=== PATIENT | female | born 1930 | race Caucasian/White ===

== ENCOUNTER 2019-07-20 17:01 | Emergency (ER) | payer MEDICARE ==
[~2019-07-20] VITALS: Wt 54.4 kg
[2019-07-20 18:47] LABS: BASO % 0.3 % (0.0-1.0); EOS % 0.3 % (1.0-4.0); HEMATOCRIT 40.2 % (37.0-47.0); HEMOGLOBIN 12.5 g/dl (12.0-16.0); LYMPH # 1.6 10*3/uL (1.3-4.4); MEAN CELL VOLUME 100.5 fl (81.0-99.0); MEAN CORPUSCULAR HGB 31.3 pg (27.0-31.0); MEAN CORPUSCULAR HGB CONC 31.1 g/dl (33.0-37.0); MEAN PLATELET VOLUME 10.7 fl (9.6-12.3); MONO # 0.5 10*3/uL (0.1-1.0); MONO % 7.8 % (3.0-9.0); NEUT # 3.8 10*3/uL (2.3-7.9); NEUT % 64.4 % (47.0-73.0); PLATELET COUNT AUTOMATED 182 10*3/uL (130-400); RED CELL DISTRI WIDTH 13.2 % (0-14.5); WHITE BLOOD COUNT 5.9 10*3/uL (4.8-10.8)
[2019-07-20 18:54] LABS: URINE AMPHETAMINES < 1000 (1000ng/ml); URINE BARBITURATES < 200 (200ng/ml); URINE BENZODIAZEPINES < 200 (200ng/ml); URINE CANNABINOIDS (THC) < 50 (50ng/ml); URINE COCAINE < 300 (300ng/ml); URINE METHADONE < 300 (300ng/ml); URINE OPIATES < 300 (300ng/ml)
[2019-07-20 18:57] LABS: URINE PHENCYCLIDINE < 25 (25ng/ml)
[2019-07-20 19:00] LABS: ACT PARTIAL THROMBO TIME 25.1 SECONDS (20.0-32.1); INTERNATIONAL NORM RATIO 1.1 (2.0-3.5)
[2019-07-20 19:02] LABS: BILIRUBIN NEGATIVE (NEGATIVE); BLOOD 3+ (NEGATIVE); CLARITY CLOUDY (CLEAR); COLOR BROWN (YELLOW); GLUCOSE NEGATIVE (NEGATIVE); KETONE NEGATIVE (NEGATIVE); SPECIFIC GRAVITY 1.025 (1.005-1.030)
[2019-07-20 19:03] LABS: ALBUMIN 2.8 gm/dl (3.1-4.5); ALKALINE PHOSPHATASE 84 U/L (45-117); BUN 24 mg/dl (7-24); CHLORIDE 109 mmol/L (98-107); CREATININE 1.49 mg/dL (0.55-1.02); LIPASE 251 U/L (73-393); SGOT/AST 15 IU/L (3-35); SGPT/ALT 15 U/L (12-78); SODIUM 144 mmol/L (136-145); TOTAL PROTEIN 6.7 gm/dL (6.4-8.2)
[2019-07-20 19:03] LABS: LEUKO ESTERASE TRACE (NEGATIVE); NITRITE NEGATIVE (NEGATIVE); RBC TNTC rbc/hpf (0-2); UROBILINOGEN 0.2 E.U./dl (0.2-1.0)
[2019-07-20 19:09] LABS: ACETAMINOPHEN (TYLENOL) < 5.0 ug/ml (10-30); ETHYL ALCOHOL < 3.0 mg/dl (<3); TROPONIN I < 0.015 ng/ml (<0.045)
[2019-07-20] MEDS ORDERED: ATORVASTATIN CA10 M1 PO (21:21)
[2019-07-20] MEDS ORDERED: KLONOPIN0.5 MG PO (21:22)
[2019-07-20] MEDS ORDERED: DEPAKOTE SPRIN125 MG PO (21:23)
[2019-07-20] MEDS ORDERED: EXELON13.3 MG/21 TD (21:24)
[2019-07-20] MEDS ORDERED: LOSARTAN POTASS25 M1 PO (21:25)
[2019-07-20] MEDS ORDERED: LASIX20 MG PO (21:25)
[2019-07-20] MEDS ORDERED: Meclizine25 MG PO (21:26)
[2019-07-20] MEDS ORDERED: MELATONIN3 M3 PO (21:28)
[2019-07-20] MEDS ORDERED: ONE DAILY PLUS1 EAC1 PO (21:28)
[2019-07-20] MEDS ORDERED: NAMENDA10 MG PO (21:29)
[2019-07-20] MEDS ORDERED: PLAVIX75 M1 PO (21:31)
[2019-07-20] MEDS ORDERED: SENNA PLUS 8.61 EACH PO (21:32)
[2019-07-20] MEDS ORDERED: POTASSIUM CHLO10 ME4 PO (21:32)
[2019-07-20] MEDS ORDERED: B COMPLEX1 EACH PO (21:33)
[2019-07-20] MEDS ORDERED: XARE15TA PO (21:34)
[2019-07-20] MEDS ORDERED: ZOFRAN4 MG PO (21:34)
== END 2019-07-20 21:06 | disposition other institution (70) ==
LOC: ED 17:01
PROVIDERS: Nurse Practitioner Family
DX: F32.9 Major depressive disorder, single episode, unspecified (principal); E86.0 Dehydration; R60.0 Localized edema; E78.5 Hyperlipidemia, unspecified; M19.90 Unspecified osteoarthritis, unspecified site; E03.9 Hypothyroidism, unspecified; Z88.8 Allergy status to other drugs, medicaments and biological substances; Z88.6 Allergy status to analgesic agent; Z79.899 Other long term (current) drug therapy; Z86.73 Personal history of transient ischemic attack (TIA), and cerebral infarction without residual deficits

== ENCOUNTER 2019-07-20 19:55 | Inpatient (IN) | payer MEDICARE ==
[~2019-07-20] VITALS: Ht 160 cm; Wt 43.4 kg
[2019-07-20] MEDS ORDERED: ATORVASTATIN CA10 M1 PO (21:21)
[2019-07-20] MEDS ORDERED: KLONOPIN0.5 MG PO (21:22)
[2019-07-20] MEDS ORDERED: DEPAKOTE SPRIN125 MG PO (21:23)
[2019-07-20] MEDS ORDERED: EXELON13.3 MG/21 TD (21:24)
[2019-07-20] MEDS ORDERED: LOSARTAN POTASS25 M1 PO (21:25)
[2019-07-20] MEDS ORDERED: LASIX20 MG PO (21:25)
[2019-07-20] MEDS ORDERED: Meclizine25 MG PO (21:26)
[2019-07-20] MEDS ORDERED: MELATONIN3 M3 PO (21:28)
[2019-07-20] MEDS ORDERED: ONE DAILY PLUS1 EAC1 PO (21:28)
[2019-07-20] MEDS ORDERED: NAMENDA10 MG PO (21:29)
[2019-07-20] MEDS ORDERED: PLAVIX75 M1 PO (21:31)
[2019-07-20] MEDS ORDERED: POTASSIUM CHLO10 ME4 PO (21:32)
[2019-07-20] MEDS ORDERED: SENNA PLUS 8.61 EACH PO (21:32)
[2019-07-20] MEDS ORDERED: B COMPLEX1 EACH PO (21:33)
[2019-07-20] MEDS ORDERED: ZOFRAN4 MG PO (21:34)
[2019-07-20] MEDS ORDERED: XARE15TA PO (21:34)
[2019-07-20 21:43] VITALS: BP 127/64
--- NOTE | 2019-07-20 21:57 | NUR ---
JESSIE CORTEZ a 88 year old F admitted via stretcher from the EMERGENCY ROOM as a voluntary admission PER SJ. Arrived on unit at 2100. ALLERGIES: CIPRO, ALLOPURINOL, CRESTOR, DARVON, VICODIN, IODINE, LISINOPRIL Vital signs are: 98.7-96-18 127/64. VERBAL CONSENT WAS RECEIVED FOR ALL ADMISSION FORMS PRIOR TO ADMISSION FROM [facility] with stated understanding: Authorization For The Release of Medical Information, Clothing List, Consent to Voluntary Admission and Hospitalization, Consent and Release Forms/Receipt of Rights, Acknowledgement of Advance Directive Information, Behavioral Health Consent Form, and Informed Consent of Medications. Admitted under the services of Dr. RENATE BANDA,RILEY. A search was conducted and hazardous articles were removed. Client was oriented to the unit. FABIOLA CLINTON
[2019-07-20 22:53] VITALS: BP 127/64
--- NOTE | 2019-07-20 22:59 | NUR ---
DR LISA NOTIFIED OF MEDICAL CONSULT & MED REQ READY FOR REVIEW
--- NOTE | 2019-07-21 00:45 | NUR ---
DR DONG ON UNIT TO SEE PT FOR MEDICAL CONSULT
--- NOTE | 2019-07-21 05:56 | NUR ---
PT HAS SLEPT APPROX 7 HOURS. SCREAMS & YELLS WITH HANDS ON CARE.
[2019-07-21 06:24] LABS: BASO % 0.2 % (0.0-1.0); EOS % 0.8 % (1.0-4.0); HEMATOCRIT 38.5 % (37.0-47.0); HEMOGLOBIN 11.9 g/dl (12.0-16.0); LYMPH # 1.4 10*3/uL (1.3-4.4); LYMPH % 29.2 % (27.0-41.0); MEAN CELL VOLUME 100.8 fl (81.0-99.0); MEAN CORPUSCULAR HGB 31.2 pg (27.0-31.0); MEAN CORPUSCULAR HGB CONC 30.9 g/dl (33.0-37.0); MEAN PLATELET VOLUME 10.7 fl (9.6-12.3); MONO # 0.4 10*3/uL (0.1-1.0); MONO % 8.5 % (3.0-9.0); NEUT # 2.9 10*3/uL (2.3-7.9); NEUT % 61.1 % (47.0-73.0); PLATELET COUNT AUTOMATED 167 10*3/uL (130-400); RED BLOOD COUNT 3.82 10*6/uL (4.10-5.10); RED CELL DISTRI WIDTH 13.2 % (0-14.5); WHITE BLOOD COUNT 4.7 10*3/uL (4.8-10.8)
[2019-07-21 06:57] LABS: POTASSIUM 3.9 mmol/L (3.5-5.1)
[2019-07-21 07:16] LABS: ALBUMIN 2.7 gm/dl (3.1-4.5); CREATININE 1.27 mg/dL (0.55-1.02); TOTAL PROTEIN 6.1 gm/dL (6.4-8.2)
--- NOTE | 2019-07-21 07:58 | NUR ---
Nursing screen and occupational therapy orders received. Will follow up with patient for completion of OT evaluation. Thank you. Emilee Reveles, OTR/L
[2019-07-21 08:00] VITALS: BP 109/66
--- NOTE | 2019-07-21 08:08 | NUR ---
PHYSICAL THERAPY Screen and PT eval received will follow thank you Radha Mccurdy PT
--- NOTE | 2019-07-21 09:06 | NUR ---
DR MCINTOSH ON UNIT TO ASSESS PT, UPDATE PROVIDED.
--- NOTE | 2019-07-21 10:32 | NUR ---
TREATMENT PLAN MEETING WAS HELD WITH DR. DEWITT, ISRAEL HURTADO, RN, AT, RETREAD TECHNICIAN-S AND MAILROOM COURIER. PLAN FOR DISCHARGE NEXT WEEK. PT. CAME TO [facility] FROM [place]. WILL REACH OUT TO FACILITY TODAY TO DISCUSS DISCHARGE PLANNING.
--- NOTE | 2019-07-21 11:16 | NUR ---
DR. MCINTOSH MADE AWARE OF PRELIMINARY BLOOD CULTURE RESULTS FROM ED. STATES HE IS GOING TO REPEAT BLOOD CULTURES AND ORDER IV ABT.
--- NOTE | 2019-07-21 11:44 | NUR ---
Spoke with Jennifer in admissions at [facility]. Pt. is LTC resident and will return to facility at discharge.
--- NOTE | 2019-07-21 11:55 | NUR ---
AM GROUP PT WAS PRESENT FOR MORNING GROUP THERAPY RECLINED IN A JESSICA CHAIR SLEEPING. PT HAS NOT BEEN ASSESSED YET AND WILL ATTEMPT THIS AFTERNOON. PT IS VERY HARD OF HEARING BUT COGNITIVE LEVEL HAS NOT BEEN ESTABLISHED NOR GOALS SET.
--- NOTE | 2019-07-21 14:45 | NUR ---
Occupational Therapy evaluation completed on three with full evaluation to follow. Recommend occupational therapy per plan of care and return to LTC upon discharge. Thank you for this referral. Emilee Reveles OTR/L
--- NOTE | 2019-07-21 15:52 | NUR ---
PM GROUP PT WAS PRESENT AT THE START OF AFTERNOON GROUP THERAPY AND WAS A LITTLE ANXIOUS SAYING, "HELP ME, HELP ME" BUT ONCE THIS CARBIDE TOOL MAKER SAT WITH HER AND COMMUNICATED WITH THE DRY ERASE BOARD, PT CALMED AND WAS VERY TALKATIVE. PT IS PLEASANTLY CONFUSED.
[2019-07-21 20:00] VITALS: BP 112/70
--- NOTE | 2019-07-21 22:08 | NUR ---
Patient alert to person only with confusion noted. Memory deficits noted. No overt s/s of responding to internal stimuli noted at this time. Patient yelling and cursing out during hands on care. Patient conpliant with HS medications with much encouragement. Patient restless at this time while in gerichair. Attempted to provide 1:1 for emotional support but patient refused and continued to yell. Redirected/reoriented when needed but patient isn't very receptive at times. Plan to continue to encourage medication compliance. Also continue to offer emotional support and continue to redirect/reorient when needed/appropriate. Will continue to monitor moods/behaviors. Q 15 minute safety checks continued and maintained. [facility] flow[facility] for further documentation.
--- NOTE | 2019-07-21 22:32 | NUR ---
Patient continues to yell out and curse. Placed patient in quiet room. Patient continues to be disruptive to other patients. Attempted to provide 1:1,communicating on dry erase board,attempted to redirect/reorient but unsuccessful. All non-pharmacological interventions unsuccessful too. Medicated with Ativan IM prn for increased agitation/anxiety. Will continue to monitor moods/behaviors.
--- NOTE | 2019-07-21 23:15 | NUR ---
Patient resting quietly in gerichair in quiet room. Ativan effective. Will continue to monitor moods/behaviors.
--- NOTE | 2019-07-22 00:39 | NUR ---
24 HR chart check completed.
--- NOTE | 2019-07-22 05:33 | NUR ---
Patient slept approx. 5 hours throughout shift. Q 15 minute safety checks continued and maintained.
--- NOTE | 2019-07-22 07:32 | NUR ---
OT NOTE Attempted to see pt this A.M. for OT session and upon arrival pt was sitting semi reclined in the christen chair in the quiet room. Pt was unavailable for therapy at this time due to lethargic behaviors. Will check back at a later time/date and continue with POC as able. PRISCILLA Benjamin/Lindsey
[2019-07-22 08:00] VITALS: BP 143/68
--- NOTE | 2019-07-22 09:00 | NUR ---
TREATMENT PLAN MEETING WAS HELD WITH DR. DEWITT, RN, AT, LAMINA SEARCHER-S AND SENIOR PRODUCT DEVELOPMENT MANAGER. PLAN FOR DISCHARGE NEXT WEEK WITH RETURN TO [facility].
--- NOTE | 2019-07-22 11:14 | NUR ---
Patient was sitting in quiet room in christen-chair with tray on yelling out that she wanted to go home to [facility] and that she needed help. Phong Braswell, logistics planner, and this MIXER AND SCALER-S sat with pt. Pt calmed after a short time of comforting pt and corresponding with pt through note writing. Pt does not understand that she is in a hospital and believes that the staff are holding her here against her will. Pt spoke of Reece, her therapeutic mentor, and of her mommy and daddy. Pt repeated numerous times that her mommy is a [place] girl and will make this promotion writer a pie. Pt stated that she also planned on baking this promotion writer a cake. Pt spoke of her [employer] marleen and appreciated when Meka from the associate professor of automation's office stopped to pray with her.
--- NOTE | 2019-07-22 11:59 | NUR ---
AM GROUP PT IS UNABLE TO ATTEND GROUP THERAPY AT THIS TIME DUE TO COGNITIVE IMPAIRMENT. PT WAS IN A QUIET ROOM YELLING FOR HELP MOST OF THE TIME.
--- NOTE | 2019-07-22 12:20 | NUR ---
SPOKE TO RE: PT BEHAVIORS. PT WITH INCREASING ANXIETY AND ESCALATING BEHAVIORS. PT APPEARS PARANOID, YELLING AT STAFF, STATES "I HOPE THEY KEEP THAT ON THEIR CONSCIOUS". PT THREW LUNCH TRAY, BROKE CERAMIC DINNER PLATE ON FLOOR, STATES "THEY THINK THEY'RE SMART. ALL OF YOU. NO ONE WILL HELP ME. HELP ME. HELP ME. NONE OF YINS HELP ME. NONE OF YOU DESERVE ANYTHING. I HOPE ALL THE BAD THINGS HAPPEN TO YOU. TAKE ME UP TO LYLE". UNABLE TO REDIRECT OR CALM DESPITE MULTIPLE ATTEMPTS AT 1:1 BY SEVERAL STAFF. GAVE VERBAL ORDER FOR RISPERDAL 0.5MG BID, GIVE MORNING DOSE NOW. WITNESSED BY 2ND RN.
--- NOTE | 2019-07-22 15:30 | NUR ---
PHYSICAL THERAPY Spoke with nurse Bess pt does not amb at facilty only SPT with assist x 2 presently being seen by OT for ADL's and transfer training. Will defer therapy to OT discussed with nursing and in agreement will discontinue PT order. Radha Mccurdy PT
--- NOTE | 2019-07-22 18:17 | NUR ---
dr. orozco on unit to assess pt earlier. new orders to dc rocephin. see consultation report for plan. unable to flush iv to L hand. iv removed.
[2019-07-22 19:58] VITALS: BP 130/68
--- NOTE | 2019-07-22 21:45 | NUR ---
PT RESTING IN BED AT THIS TIME. VITALS WNL, PT RESPONDED WITH VERBAL STIMULATION. MEDICATION COMPLIANT, SPEECH GARBLED NON SENSICAL. CONTINUE TO MONITOR PER 15 MIN CHECKS
--- NOTE | 2019-07-23 02:30 | NUR ---
YELLING OUT FROM HER ROOM, THROWING LEGS OUT OF BED WITHOUT AWARENESS OF SAFETY. HOC PROVIDED BY STAFF, PT CONTINUED TO BE RESTLESS, ASSISTED UP TO JESSICA CHAIR, GIVEN WARM BLANKET AND BROUGHT TO COMMON AREA WITH STAFF.
--- NOTE | 2019-07-23 03:43 | NUR ---
PT YELLING OUT FOR STAFF TO CALL AMBULANCE, "I NEED THE AMBULANCE THEY DRUGGED ME WITH WEIRD THINGS, THEY ARE TRYING TO KILL ME" PT CALMED WITH 1:1, INFORMED OF HER BEING IN THE HOSPITAL AT THIS TIME AND THAT SHE IS SAFE. THIS CALMED PT WITHOUT DIFFICULTY. RETURNED TO RESTING IN JESSICA CHAIR.
--- NOTE | 2019-07-23 05:45 | NUR ---
PT SLEPT 5 BROKEN HOURS THIS EVEING
--- NOTE | 2019-07-23 05:46 | NUR ---
24 HR chart check completed.
--- NOTE | 2019-07-23 07:55 | NUR ---
OT NOTE Prior to coming to the floor spoke with charge nurse Rosalia and reported that therapy was coming to the floor to treat this pt. Pt was seen this A.M. 1:1 for 15 minute OT session with BUSINESS OFFICE REPRESENTATIVE and nursing staff present for observation only. Pt identified by name and and had no complaints at this time. Upon arrival pt was sitting upright in the dining sousa in her christen chair. Pt was taken out to the hallway where she completed multiple sit to stand transfers from chair level with use of hand rail for UE support. During inital stand pt required maxA x 2 and with second and third trial pt was able to complete with CGA and verbal prompts. Challenged pt's static standing tolerance needed for increased I in self care tasks and functional transfers, pt was able to tolerate aprox 30-40 seconds at a time and required occasional Tevin to correct L lateral lean. Pt then completed grooming task while seated consisting of washing her hands and face with SBA and multiple verbal prompts for following commands. Pt was left sitting upright in the christen chair in the dining sousa under [facility] staff supevision and body alarm activated for safety. Continue with rec D/C plan to return to LTC. PRISCILLA Benjamin/Lindsey
[2019-07-23 08:00] VITALS: BP 110/67
--- NOTE | 2019-07-23 08:00 | NUR ---
Patient eating breakfast in dining room with peers. Respirations easy and regular. Vital signs stable. No overt distress. BAILEY VERA PHMNP-BC on unit to see pt at this time. Update given.
--- NOTE | 2019-07-23 08:00 | NUR ---
TREATMENT PLAN MEETING WAS HELD WITH ISRAEL HURTADO RN, AT AND PRODUCT OPERATIONS ASSOCIATE. PLAN FOR DISCHARGE NEXT WEEK, POSSIBLE FRIDAY. PT. WILL RETURN TO [facility].
[2019-07-23 09:28] VITALS: BP 122/76
--- NOTE | 2019-07-23 12:44 | NUR ---
AM GROUP PT WAS PRESENT FOR MORNING GROUP THERAPY RECLINED IN A JESSICA CHAIR SLEEPING. PT DID NOT WAKE DURING GROUP
--- NOTE | 2019-07-23 13:14 | NUR ---
SPOKE WITH RADHA AT [facility]. NOTIFIED OF PLANS TO DISCHARGE LATE NEXT WEEK. PROVIDED WITH UPDATES AND FAXED CLINICAL UPDATES TO FACILITY [phone].
--- NOTE | 2019-07-23 13:53 | NUR ---
JESSIE CORTEZ [id number] Please refer to the physician's history and physical for past medical history, comorbid conditions, and allergies. Diagnosis: MAJOR DEPRESSION RECURRENT Mychal Score: 15,AT RISK WOUND DESCRIPTIONS: Wound Number: 1 Location of the wound: LEFT HIP Thickness: Partial Size: 0.9cm X 0.9cm X 0.1cm Tunneling: NONE Undermining: NONE Sinus Tract: NONE Presence of Exudate: NONE Amount: None Color: Red Odor: None Periwound Skin Appearance: Normal Wound edges: APPROXIMATED Pain (associated with wound): DENIED AT TIME OF ASSESSMENT How does patient state this happened? PATIENT UNSURE HOW THIS HAPPENED. Surface the patient is resting on: Proform SKIN PREVENTION RECOMMENDATION: 1. Pressure redistribution support surface as appropriate 2. Elevate heels 3. Remove boots/TEDS every shift and reapply 4. Head of bed 30 degrees as tolerated 5. Assess nutrition and hydration 6. Manage moisture 7. Avoid the use of containment devices while in bed 8. Use absorptive products on surfaces limit layers of linens on bed 9. Turn and reposition every 1-2 hours in bed and every 1 hour in chair as tolerated 10. Weight shifts every 15 minutes while up in chair 11. Offloading with pillows or device to keep heels elevated off bed 12. Monitor skin at least every shift 13. Inspect under medical devices twice a day WOUND TREATMENT RECOMMENDATIONS: PARTIAL THICKNESS GUIDELINES LEFT HIP: CLEANSE WITH NSS APPLY SUREPREP AROUND THE WOUND APPLY HYDROGEL TO WOUND BED COVER WITH OPTIFOAM GENTLE. CHANGE EVERY 2 DAYS AND PRN SOILING.
--- NOTE | 2019-07-23 13:58 | NUR ---
WOUND CARE NURSE ON UNIT, ASSESSED AREA TO LEFT HIP, RECOMMENDS PARTIAL THICKNESS GUIDELINES: HYDROGEL AND OPTIFOAM. NOTIFIED.
--- NOTE | 2019-07-23 14:00 | NUR ---
UPON SKIN ASSESSMENT BY THIS RN THIS DATE, SUPERFICIAL OPEN AREA MEASURING 0.9CM X 0.9CM X 0.1CM OBSERVED TO LEFT HIP AREA, NOT DIRECTLY LOCATED ON ANY BONY PROMINENCE. SURROUNDING SKIN IS INTACT. NO DRAINAGE OR FOUL ODOR NOTED FROM WOUND. WOUND BED RED/BRIGHT PINK IN COLOR. PT DENIES PAIN TO AREA. PT UNABLE TO STATE HOW THIS HAPPENED. WOUND PHOTO TAKEN. PT'S GABBIE DAWN NOTIFIED. WOUND CARE NURSE NOTIFIED. CHECKER NOTIFIED. NOTIFIED WITH WOUND CARE ORDERS RECIEVED AND CARRIED OUT ORDERED.
--- NOTE | 2019-07-23 15:06 | NUR ---
OCCUPATIONAL THERAPY CO-SIGN I approve of the Occupational Therapy notes written above. GENEVA BOYKIN OTR/Lindsey
--- NOTE | 2019-07-23 15:39 | NUR ---
PM GROUP PT DID NOT ATTEND AFTERNOON GROUP THERAPY. PT WAS IN BED NAPPING.
--- NOTE | 2019-07-23 18:16 | NUR ---
P- CONFUSION, PERIODS OF INCREASED ANXIETY NOTED. EASIER TO REDIRECT THIS SHIFT. I- ORIENTATION, MOOD AND BEHAVIORS ASSESSED. ASSESSED PT FOR SI/HI, INTENT OR PLAN. ASSESSED PT FOR S/S HALLUCINATIONS, PARANOIA AND/OR DELUSIONS. MEDICATIONS ADMINISTERED PER PHYSICIANS ORDERS. ASSISTANCE WITH ADL CARE PROVIDED NEEDED. ENCOURAGED PT TO ATTEND AND PARTICIPATE IN [facility] GROUPS AND ACTIVITIES. R- PT IS ALERT AND ORIENTED TO PERSON ONLY, OTHERWISE CONFUSED. ST/LT MEMORY GAPS NOTED. RESPS EASY AND EVEN ON ROOM AIR. MOOD IS ANXIOUS AT TIMES, AFFECT BROAD RANGE. SPEECH IS SOFT, NONSENSICAL AT TIMES. PT DENIES SI/HI, INTENT OR PLAN. PT DENIES HALLUCINATIONS, NO RESPONSE TO INTERNAL STIMULI NOTED. NO PARANOIA OR DELUSIONS NOTED. PT EASIER TO REDIRECT THIS SHIFT THAN PREVIOUSLY ASSESSED BY THIS RN. MED COMPLIANT WITHOUT DIFFICULTY. NO AGGRESSIVE BEHAVIORS THIS SHIFT. NO DISTRESS NOTED. P- PLAN TO CONTINUE CURRENT TREATMENT, CONTINUE TO MONITOR MOOD AND BEHAVIORS, PROVIDE APPROPRIATE REORIENTATION, REDIRECTION AND 1:1 NEEDED. CONTINUE TO ENCOURAGE MEDICATION COMPLIANCE WELL GROUP ATTENDANCE AND PARTICIPATION.
[2019-07-23 20:00] VITALS: BP 107/55
--- NOTE | 2019-07-23 21:56 | NUR ---
Patient alert to person only with confusion noted. Memory deficits noted. No overt s/s of responding to internal stimuli noted at this time. Mood calm and cooperative. Patient yells out with hands on care but then calms afterwards. Patient conpliant with HS medications. Provided 1:1 for emotional support. Redirected/reoriented when needed but patient isn't very receptive at times. Plan to continue to encourage medication compliance. Also continue to offer emotional support and continue to redirect/reorient when needed/appropriate. Will continue to monitor moods/behaviors. Q 15 minute safety checks continued and maintained. See [facility] flowsheet for further documentation.
--- NOTE | 2019-07-24 00:28 | NUR ---
24 HR chart check completed.
--- NOTE | 2019-07-24 05:43 | NUR ---
Patient slept approx. 7 hours throughout shift. Q 15 minute safety checks continued and maintained.
[2019-07-24 08:00] VITALS: BP 144/78
--- NOTE | 2019-07-24 09:26 | NUR ---
DR NELSON UPDATED HOUSE WIRER FROM MICROBIOLOGY REGARDING POSITIVE BLOOD CULTURES. NO NEW ORDERS AT THIS TIME.
--- NOTE | 2019-07-24 09:37 | NUR ---
Patient in dining room with peers with no c/o discomfort. Respirations easy and regular. Vital signs stable. No overt distress. LAURENCE MCKENZIE
--- NOTE | 2019-07-24 11:50 | NUR ---
AM GROUP/LEISURE SKILLS PT IN ATTENDANCE BUT RESTING THE ENTIRE TIME.
--- NOTE | 2019-07-24 16:02 | NUR ---
PM GROUP/LEISURE SKILLS PT IN ATTENDNACE RESTING IN CHAIR AT THIS TIME.
[2019-07-24 20:00] VITALS: BP 110/66
--- NOTE | 2019-07-24 21:54 | NUR ---
Patient alert to person only with confusion noted. Memory deficits noted. No overt s/s of responding to internal stimuli noted at this time. Mood calm and cooperative at this time but constantly asking people "I need to go to [facility],will your give me a ride. I will pay you". Patient yells out with hands on care but then calms afterwards. Redirected/reoriented easily. Patient conpliant with HS medications. Provided 1:1 for emotional support. Plan to continue to encourage medication compliance. Also continue to offer emotional support and continue to redirect/reorient when needed/appropriate. Will continue to monitor moods/behaviors. Q 15 minute safety checks continued and maintained. See [facility] flowsheet for further documentation.
--- NOTE | 2019-07-25 00:13 | NUR ---
24 HR chart check completed.
--- NOTE | 2019-07-25 05:57 | NUR ---
Patient slept approx. 8.5 hours throughout shift. Q 15 minute safety checks continued and maintained.
[2019-07-25 08:00] VITALS: BP 112/67
--- NOTE | 2019-07-25 12:20 | NUR ---
PLEASANT MEDICATION COMPLAINT, APPETITE FAIR WITH PROMPTING AND ASSISTANCE. PT UP TO JESSICA CHAIR WITH FEET ELEVATED. +1 EDEMA PRESENT AT THIS TIME TO BLE CONTINUE TO ELEVATE FEET PT TOLERATES. NO SI/HI PRESENT. PT CONFUSED WITH ST/LT MEMORY DEFICIT. SHE IS UNABLE TO STATE PLACE,TIME OR SITUATION SHE IS TRANSFERED WITH 2 ASSIST DUE TO POOR WEIGHT BEARING. CONTINUE TO MONITOR 15 MIN CHECKS
--- NOTE | 2019-07-25 14:38 | NUR ---
PT INTERACTIVE THIS SHIFT, ST/LT MEMORY DEFICITS NOTED. PT HAS HAD NO DELUSIONS, SI/HI NOTED. MEDICATION COMPLIANT, FAIR APPETITE, WITH PLEASANT INTERACTIONS WITH STAFF AND HOC. PT CONTINUES TO BE MONITOR 15 MIN CHECKS. FED SELF FOR BREAKFAST AND LUNCH WITH SET UP.
[2019-07-25 20:00] VITALS: BP 100/43
--- NOTE | 2019-07-25 23:28 | NUR ---
Patient alert to person only with confusion noted. Memory deficits noted. No overt s/s of responding to internal stimuli noted at this time. Mood calm and cooperative at this time. Patient yells out with hands on care but then calms afterwards. Redirected/reoriented easily. Patient conpliant with HS medications. Provided 1:1 for emotional support. Plan to continue to encourage medication compliance. Also continue to offer emotional support and continue to redirect/reorient when needed/appropriate. Will continue to monitor moods/behaviors. Q 15 minute safety checks continued and maintained. See [facility] flowsheet for further documentation.
--- NOTE | 2019-07-26 00:42 | NUR ---
24 HR chart check completed.
--- NOTE | 2019-07-26 05:52 | NUR ---
Patient slept approx. 7 hours throughout shift. Q 15 minute safety checks continued and maintained.
[2019-07-26 07:57] VITALS: BP 133/79
--- NOTE | 2019-07-26 08:00 | NUR ---
OT NOTE Prior to coming to the floor spoke with charge nurse Liset and reported that therapy would be coming to the floor to treat this pt. Pt was seen this A.M. 1:1 for 15 minute OT session. Pt identified by name and and had no complaints at this time. Upon arrival pt was sitting semi reclined in the christen chair in the dining sousa. Pt was taken out into the hallway where she completed multiple sit to stand transfers from chair level with use of hand rail for UE support. Pt's first sit to stand from chair level was completed with maxA X 2 and use of hand rail then second and third completed with modA X 2 and use of hand rail for UE support. Throughout pt required constant verbal and visual prompts for following commands, correcting her posture, and encouragment. Challenged pt's static standing tolerance needed for increased I in self care tasks and functional transfers and pt was able to tolerate aprox 20-30 seconds at a time before sitting due to fatigue. Pt was then taken to the bathroom where a seated grooming task consisting of washing her hands and face was completed with Tevin. Tevin required for set up of task and assist with sequencing. Throughout session pt required constant verbal prompts for attention to task. Pt was left sitting upright in the dining sousa in her christen chair with body alarm activated for safety and under [facility] staff supervision. Continue with rec D/C plan to return to LTC. PRISCILLA Benjamin/Lindsey
--- NOTE | 2019-07-26 09:10 | NUR ---
Dr. Landis notified of wound care recommendations.
--- NOTE | 2019-07-26 09:40 | NUR ---
TREATMENT PLAN MEETING WAS HELD WITH ISRAEL HURTADO RN, READING ASSISTANT-S AND HAT TRIMMER. PLAN FOR DISCHARGE THIS WEEK. PT. WILL RETURN TO [facility] AT DISCHARGE.
--- NOTE | 2019-07-26 14:00 | NUR ---
DR. ALTMAN ON UNIT TO ASSESS PATIENT.
--- NOTE | 2019-07-26 14:48 | NUR ---
CLINICAL UPDATES FAXED TO [facility] ATTN: RADHA [phone].
--- NOTE | 2019-07-26 16:08 | NUR ---
PT MEDICATION COMPLIANT TODAY, PT NOTED TO BE ANXIOUS BEGINING OF SHIFT WITH RESTLESSNESS AND CONCERN ABOUT IF SHE NEEDED TO LEAVE THE AREA. REASSURANCE GIVEN AND 1:1 PT RESTED IN BED WITH TURN SCHEDULE MAINTAINED WAFFLE BOOTS AND CUSHION IN CHAIR. NO OTHER MOODS OR BEHAVIORS NOTED THIS SHIFT. NO DELUSIONS HALLUCINATIONS NO SI/HI MONITOR 15 MIN CHCEKS
[2019-07-26 19:45] VITALS: BP 141/76
--- NOTE | 2019-07-26 21:31 | NUR ---
P--DEPRESSION RESOLVED I--EXPLAINED MEDICATIONS PRIOR TO GIVING. OFFERED EMOTIONAL SUPPORT. ORAL CARE PROVIDED, SNACK AND DRINK PROVIDED BY STAFF R--SMILED AND WAS MEDICATION COMPLIANT. CONFUSED TO PLACE AND TIME. P--MONITOR FOR CHANGES IN BEHAVIOR/MOOD/ MONITOR Q 15 MIN AND PRN FOR SAFETY. PROVIDE EMOTIONAL AND PHYSICAL SUPPORT NEEDED.
--- NOTE | 2019-07-27 03:47 | NUR ---
24 HR chart check completed.
--- NOTE | 2019-07-27 04:05 | NUR ---
Upon discharge recommend patient to follow up for wound care in outpatient setting continue current wound care orders at discharging facility.
--- NOTE | 2019-07-27 07:58 | NUR ---
OT NOTE Attempted to see pt this A.M. for OT session and upon arrival pt was eating her breakfast. Will check back at a later time/date and continue with POC as able. PRISCILLA Benjamin/Lindsey
[2019-07-27 08:20] VITALS: BP 123/54
--- NOTE | 2019-07-27 08:27 | NUR ---
Patient is eating breakfast in dining room with peers. Respirations easy and regular. Vital signs stable. No overt distress. BAILEY VERA and [facility]- on unit to see pt at this time, update given.
--- NOTE | 2019-07-27 09:00 | NUR ---
TREATMENT PLAN MEETING WAS HELD WITH DR. DEWITT, ISRAEL HURTADO, RN, AT, FURNACE BRAZER-S AND VENEER STAPLER. PLAN FOR DISCHARGE FRIDAY WITH RETURN TO [facility].
--- NOTE | 2019-07-27 10:50 | NUR ---
AND TEAM ON UNIT TO SEE PT AT THIS TIME. DISCUSSED POSITIVE BLOOD CULTURE, ECHO FOR TODAY, ROCEPHIN IV TO START TODAY AND URINE CULTURE SHOWING +ESBL/URINE WHICH SHOWS RESISTANT TO ROCEPHIN PER C&S. STATES HE WILL DISCUSS WITH (INFECTIOUS DISEASE) AND LET US KNOW HOW WE WILL PROCEED.CALL PLACED TO INFECTION CONTROL NURSE RE: ESBL. AWAITING RETURN CALL/FURTHER ORDERS FROM PHYSICIAN AT THIS TIME.
--- NOTE | 2019-07-27 11:45 | NUR ---
OT NOTE Pt was seen this A.M. 1:1 for 15 minute OT session with nursing staff present for observation only. Upon arrival pt was sitting semi reclined in the christen chair in the dining sousa asleep. Pt was eaily aroused to verbal stimuli and identified by name and . Pt was sat upright and lap tray removed. Pt completed BUE towel exercises over all planes of motion for 1 X 10 to increase and restore maximum functional strength for increased I. Throughout pt required verbal prompts for following commands and attention to task. Pt was left sitting upright in the dining sousa in the christen chair with lap tray in place, body alarm activated for safety, and under [facility] staff supervision. Continue with rec D/C plan to return to LTC. PRISCILLA Benajmin/Lindsey
--- NOTE | 2019-07-27 11:54 | NUR ---
AM GROUP/EXERCISE AND [place]ACHUTE PT WAS PRESENT FOR MORNING GROUP THERAPY RECLINED IN A JESSICA CHAIR SLEEPING. PT WOKE ONCE BUT WENT RIGHT BACK TO SLEEP. PT IS UNABLE TO PARTICIPATE AT THIS TIME DUE TO COGNITIVE IMPAIRMENT AND HEARING DEFIECIET.
--- NOTE | 2019-07-27 14:51 | NUR ---
SPOKE WITH SHAWN THE DOG HANDLER AT [facility]. ADVISED THAT PATIENT WAS RECEIVING I.V. ANTIBIOTICS AND WOULD LIKELY DISCHARGE ON I.V. ANTIBIOTICS. PT. CURRENTLY RECEIVING ROCEPHIN. SHAWN RECEIVED APPROVAL FROM SUPERVISOR ASSEMBLING FOR PT. TO RECEIVE I.V. ANTIBIOTICS AT FACILITY. FACILITY HAS REQUESTED THAT HEP LOCK REMAIN.
--- NOTE | 2019-07-27 15:45 | NUR ---
PM GROUP/CRAFTS PT WAS PRESENT AT THE START OF GROUP RECLINED IN A JESSICA CHAIR WATCHING A MOVIE. PT WAS QUIET AND CALM. PT WAS TAKEN FROM THE ROOM BY MHW AND DID NOT RETURN.
--- NOTE | 2019-07-27 17:18 | NUR ---
NOTIFIED AT THIS TIME NURSING HAS BEEN UNABLE TO ESTABLISH IV ACCESS DESPITE MULTIPLE ATTEMPTS BY [facility] RNs and RN FROM MEDICAL FLOOR. PT BECOMING AGITATED WITH FURTHER ATTEMPTS TO ESTABLISH IV ACCESS AT THIS TIME. STATES TO ENCOURAGE PO FLUIDS FOR DINNER AND REATTEMPT IV ACCESS LATER.
--- NOTE | 2019-07-27 17:42 | NUR ---
NO ADVERSE MOODS OR BEHAVIORS THIS SHIFT. PT IS ALERT AND PLEASANTLY CONFUSED. MEMORY GAPS NOTED. RESPS EASY AND EVEN ON ROOM AIR. NAPPING INTERMITTENTLY, EASILY AROUSABLE VIA VERBAL/TACTILE STIMULI. HARD OF HEARING. PT DENIES SI/HI, INTENT OR PLAN. PT DENIES HALLUCINATIONS, NO RESPONSE TO INTERNAL STIMULI NOTED. NO PARANOIA OR DELUSIONS NOTED. NO AGGRESSIVE BEHAVIORS DISPLAYED. MED COMPLIANT WITHOUT DIFFICULTY. NO DISTRESS NOTED. PLAN TO CONTINUE CURRENT TREATMENT, CONTINUE TO MONITOR MOOD AND BEHAVIORS, PROVIDE APPROPRIATE REORIENTATION, REDIRECTION AND 1:1 NEEDED. CONTINUE TO ENCOURAGE MEDICATION COMPLIANCE WELL GROUP ATTENDANCE AND PARTICIPATION.
[2019-07-27 19:47] VITALS: BP 126/64
--- NOTE | 2019-07-27 21:28 | NUR ---
IV started right forearm with #25 angiocath after 2 attempts. The IV site was prepped with Chloraprep. Heparin lock attached. Sterile dressing applied. Patient tolerated precedure well. Procedure performed according to [facility] policy & procedure. SOFYA RUDOLPH
--- NOTE | 2019-07-28 05:28 | NUR ---
24 HR chart check completed.
--- NOTE | 2019-07-28 06:55 | NUR ---
PATIENT SLEPT 8 HOURS OF INTERRUPTED SLEEP THROUGHOUT SHIFT. Q 15 MINUTE CHECKS MAINTAINED. 24 HR chart check completed.
--- NOTE | 2019-07-28 07:15 | NUR ---
OT NOTE Prior to coming to floor spoke with charge nurse Helen and reported that therapy would be coming to the floor to treat this pt. Pt was seen this A.M. 1:1 for 15 minute OT session with TANK WAGON DRIVER and nursing staff present for observation only. Upon arrival pt was sitting semi reclined in the christen chair in the dining sousa. Pt identified by name and and had no complaints at this time. Pt completed BUE towel exercises over all planes of motion for 1 X 10 with hand over hand assist for following commands. Pt was then taken out to the hallway where she completed multiple sit to stand transfers from chair level with Tevin X 1 and use of hand rail for UE support. Challenged pt's static standing tolerance needed for increased I and enhanced endurance and pt was able to tolerate aprox 30 seconds at a time before sitting due to fatigue. Pt was left sitting upright in the christen chair in the dining sousa with lap tray in place, body alarm activated for safety, and under [facility] staff supervision. Continue with rec D/C plan to return to LTC. PRISCILLA Benjamin/Lindsey
[2019-07-28 07:50] VITALS: BP 142/68
--- NOTE | 2019-07-28 08:30 | NUR ---
TREATMENT PLAN MEETING WAS HELD WITH DR. DEWITT, ISRAEL HURTADO, RN, AT, DIRECTOR GENERAL-S AND TAX ANALYST. PLAN FOR DISCHARGE TODAY IF MEDICALLY STABLE. IF REQUIRES HIGHER LEVEL OF CARE WILL TRANSFER TO MEDICAL FLOOR. DISCHARGE PENDING. WILL FOLLOW.
--- NOTE | 2019-07-28 10:15 | NUR ---
SPOKE TO RE: ORDER FOR TRANSESOPHAGEAL ECHOCARDIOGRAM, PT READY FOR DISCHARGE FROM [facility]. STATES THEY ARE DISCUSSING WHETHER TO DO ARNOLDO INPATIENT ON MEDICAL FLOOR OR IF PT CAN BE DISCHARGED AND ARNOLDO DONE ON OUTPATIENT BASIS. THEY WILL LET US KNOW.
--- NOTE | 2019-07-28 10:50 | NUR ---
AND TEAM ON UNIT AT THIS TIME, DISCUSSED PT'S CASE RE: ARNOLDO/DISCHARGE. MADE AWARE PT HAS MEDICAL POWER OF SEMICONDUCTOR WAFERS TESTER. TO CALL DPOAH TO DISCUSS THEIR WISHES FOR FURTHER TREATMENT BEFORE MAKING DISCHARGE DECISION.
--- NOTE | 2019-07-28 11:46 | NUR ---
AM GROUP/MUSIC AND ART PT WAS PRESENT FOR MORNING GROUP THERAPY RECLINED IN A JESSICA CHAIR SLEEPING. PT IS TO BE DISCHARGED FROM THE UNIT SOMETIME TODAY.
--- NOTE | 2019-07-28 13:00 | NUR ---
RECIEVED CALL FROM WITH ORDER TO DISCHARGE PT TO MEDICAL FLOOR, UNMONITORED BED, ADMITTING DX: SEVERE MITRAL VALVE DISEASE, BACTERMIA. NURSING LEAD SLOT TECHNICIAN, GEOTHERMAL OPERATIONS MANAGER, , AND [facility] AUTOMOTIVE PARTS COUNTER ASSOCIATE NOTIFIED.
[2019-07-28] MEDS ORDERED: KLONOPIN1 M1 PO (13:24)
[2019-07-28] MEDS ORDERED: CYMBALTA60 MG PO (13:24)
[2019-07-28] MEDS ORDERED: RISPERDAL0.5 MG PO (13:25)
--- NOTE | 2019-07-28 13:43 | NUR ---
NOTIFIED RADHA BEJARANO AT [facility] THAT PATIENT WAS TRANSFERRING TO THE MEDICAL FLOOR FOR HIGHER LEVEL OF CARE. CLINICAL UPDATES FAXED TO [place] ATTN: RADHA [phone].
--- NOTE | 2019-07-28 13:45 | NUR ---
PT TO GO TO ROOM 525 PER NURSING YARDER OPERATOR. AWARE OF ESBL PRECAUTIONS.
--- NOTE | 2019-07-28 14:08 | NUR ---
PT DISCHARGED AT THIS TIME TO [facility] 5TH FLOOR ROOM 525. PT LEFT THE UNIT IN STABLE CONDITION VIA WHEELCHAIR, [facility] AND [facility]. NURSE TO NURSE REPORT GIVEN TO RN. AWARE OF COLONIZED ESBL, ARNOLDO SCHEDULED FOR TOMORROW MORNING 729. PERSONAL BELONGINGS SENT WITH PT.
--- NOTE | 2019-07-28 14:28 | NUR ---
PT SIGNIFICANT OTHER, DALJIT AWARE OF TRANSFER TO ROOM 525.
[2019-07-29] MEDS ORDERED: CEFTRIAXONE2 G1 IV (10:48)
--- NOTE | 2019-07-30 12:32 | NUR ---
OCCUPATIONAL THERAPY CO-SIGN I approve of the Occupational Therapy notes written above. GENEVA BOYKIN OTR/Lindsey
== END 2019-07-28 14:08 | disposition short-term general hospital (02) | DRG 885 ==
LOC: 3N 19:55
PROVIDERS: ADMIT Psychiatry & Neurology Psychiatry
DX: F33.3 Major depressive disorder, recurrent, severe with psychotic symptoms (principal); E43 Unspecified severe protein-calorie malnutrition; N17.0 Acute kidney failure with tubular necrosis; F02.81 Dementia in other diseases classified elsewhere, unspecified severity, with behavioral disturbance; E87.0 Hyperosmolality and hypernatremia; R78.81 Bacteremia; Z68.1 Body mass index [BMI] 19.9 or less, adult; G30.9 Alzheimer's disease, unspecified; F41.9 Anxiety disorder, unspecified; M19.90 Unspecified osteoarthritis, unspecified site; E78.5 Hyperlipidemia, unspecified; D72.810 Lymphocytopenia; D53.9 Nutritional anemia, unspecified; E87.8 Other disorders of electrolyte and fluid balance, not elsewhere classified; I35.0 Nonrheumatic aortic (valve) stenosis; E03.9 Hypothyroidism, unspecified; R82.71 Bacteriuria; B96.89 Other specified bacterial agents as the cause of diseases classified elsewhere; B95.4 Other streptococcus as the cause of diseases classified elsewhere; Z86.718 Personal history of other venous thrombosis and embolism; Z88.8 Allergy status to other drugs, medicaments and biological substances; Z86.73 Personal history of transient ischemic attack (TIA), and cerebral infarction without residual deficits; Z82.49 Family history of ischemic heart disease and other diseases of the circulatory system; Z80.3 Family history of malignant neoplasm of breast; Z88.6 Allergy status to analgesic agent; Z79.899 Other long term (current) drug therapy

== ENCOUNTER 2019-07-28 13:49 | Inpatient (IN) | payer MEDICARE ==
[~2019-07-28] VITALS: Ht 160 cm; Wt 50.4 kg
[~2019-07-28 13:49] MED LIST: ATORVASTATIN CA10 M1 PO; B COMPLEX1 EACH PO; CYMBALTA60 MG PO; DEPAKOTE SPRIN125 MG PO; EXELON13.3 MG/21 TD; KLONOPIN0.5 MG PO; KLONOPIN1 M1 PO; LASIX20 MG PO; LOSARTAN POTASS25 M1 PO; MELATONIN3 M3 PO; Meclizine25 MG PO; NAMENDA10 MG PO; ONE DAILY PLUS1 EAC1 PO; PLAVIX75 M1 PO; POTASSIUM CHLO10 ME4 PO; RISPERDAL0.5 MG PO; SENNA PLUS 8.61 EACH PO; XARE15TA PO; ZOFRAN4 MG PO
--- NOTE | 2019-07-28 14:28 | NUR ---
Time: 1409 A 88 year old FEMALE admitted to under services of STEWART ROGERS DO. Pt. arrived via bed from [place]. Chief complaint: SEVERE AORTIC VALVE STENOSIS. MEG ALCAZAR
--- NOTE | 2019-07-28 14:30 | NUR ---
LEFT MESSAGE WITH POA REAGRDING ADMISSION
[2019-07-28 16:00] VITALS: BP 101/55
--- NOTE | 2019-07-28 16:30 | NUR ---
CALLED AND LEFT MESSAGED WITH POA FOR THE SECOND TIME REGARDING ADMISSION AND ARNOLDO.
--- NOTE | 2019-07-28 17:43 | NUR ---
CALLED AND LEFT MESSAGED WITH POA REGARDING ADMISSION AND ARNOLDO CONSENT, NO ANSWER WILL CONTINUE TO CALL
--- NOTE | 2019-07-28 18:02 | NUR ---
NOTIFIED OF C/O OF LOWER BACK PAIN
--- NOTE | 2019-07-28 18:12 | NUR ---
CALLED YULY GUSTAFSON, NO ANSWER AT THIS TIME, LEFT MESSAGE
[2019-07-28 20:00] VITALS: BP 106/52
[2019-07-29] VITALS (9 sets, daily range): BP systolic 99–185; BP diastolic 45–86
--- NOTE | 2019-07-29 02:19 | NUR ---
KINGJESSIE J [id number] Please refer to the physician's history and physical for past medical history, comorbid conditions, and allergies. Diagnosis: SEVERE MITRAL VALVE DISEASE BACTEREMIA Mychal Score: 11,HIGH RISK WOUND DESCRIPTIONS: Wound Number: 1 Location of the wound: Left hip Thickness: Partial Size: 2.5cm x 1.7cm x 0.1cm Tunneling: none Undermining: none Sinus Tract: none Presence of Exudate: Serous Amount: Light Color: Red Odor: None Periwound Skin Appearance: Normal Wound edges: approximated Pain (associated with wound): none at time of assessment How does patient state this happened? pt unable to state how this happened Surface the patient is resting on: Position Pro SKIN PREVENTION RECOMMENDATION: 1. Pressure redistribution support surface as appropriate 2. Elevate heels 3. Remove boots/TEDS every shift and reapply 4. Head of bed 30 degrees as tolerated 5. Assess nutrition and hydration 6. Manage moisture 7. Avoid the use of containment devices while in bed 8. Use absorptive products on surfaces limit layers of linens on bed 9. Turn and reposition every 1-2 hours in bed and every 1 hour in chair as tolerated 10. Weight shifts every 15 minutes while up in chair 11. Offloading with pillows or device to keep heels elevated off bed 12. Monitor skin at least every shift 13. Inspect under medical devices twice a day WOUND TREATMENT RECOMMENDATIONS: Partial thickness guidelines: Cleanse left hip with nss and apply sureprep around the wound hydrogel to wound bed and cover with optifoam gentle every 2 days and prn for soiling.
--- NOTE | 2019-07-29 04:31 | NUR ---
Upon discharge recommend patient to follow up for wound care in outpatient setting continue current wound care orders at discharging facility.
--- NOTE | 2019-07-29 04:46 | NUR ---
Upon discharge recommend patient to follow up for wound care in outpatient setting continue current wound care orders at discharging facility.
[2019-07-29 06:31] LABS: INTERNATIONAL NORM RATIO 0.9 (2.0-3.5)
[2019-07-29 06:39] LABS: ALBUMIN 2.4 gm/dl (3.1-4.5); CREATININE 1.19 mg/dL (0.55-1.02); PHOSPHOROUS 3.2 mg/dL (2.5-4.9); POTASSIUM 3.3 mmol/L (3.5-5.1); TOTAL PROTEIN 6.1 gm/dL (6.4-8.2)
[2019-07-29 06:48] LABS: BASO % 0.7 % (0.0-1.0); EOS # 0.1 10*3/uL (0.0-0.4); EOS % 3.1 % (1.0-4.0); HEMATOCRIT 37.2 % (37.0-47.0); HEMOGLOBIN 11.8 g/dl (12.0-16.0); LYMPH # 1.2 10*3/uL (1.3-4.4); LYMPH % 28.9 % (27.0-41.0); MEAN CELL VOLUME 97.9 fl (81.0-99.0); MEAN CORPUSCULAR HGB 31.1 pg (27.0-31.0); MEAN CORPUSCULAR HGB CONC 31.7 g/dl (33.0-37.0); MEAN PLATELET VOLUME 10.3 fl (9.6-12.3); MONO # 0.5 10*3/uL (0.1-1.0); NEUT # 2.3 10*3/uL (2.3-7.9); NEUT % 55.1 % (47.0-73.0); PLATELET COUNT AUTOMATED 215 10*3/uL (130-400); RED CELL DISTRI WIDTH 13.2 % (0-14.5); WHITE BLOOD COUNT 4.3 10*3/uL (4.8-10.8)
--- NOTE | 2019-07-29 07:30 | NUR ---
PT TAKEN TO SURGERY FOR ARNOLDO PRIOR TO ASSUMING CARE OF PATIENT.
--- NOTE | 2019-07-29 08:30 | NUR ---
Crusher And Blender Operator in to see patient. She is a LTC resident at [facility]. U load planner following for facility discharge.
--- NOTE | 2019-07-29 08:37 | NUR ---
return from surgery
[2019-07-29] MEDS ORDERED: CEFTRIAXONE2 G1 IV (10:48)
--- NOTE | 2019-07-29 10:59 | NUR ---
Spoke to the hospitalist nurse director regarding Dr. Herrera stating patient will need IV Rocephin for 3 more days. [facility] production control planner is working on setting up transportation for tomorrow to [place].
--- NOTE | 2019-07-29 13:04 | NUR ---
Patient is discharged for tomorrow AM. family preservation caseworker and prison warden aware.
--- NOTE | 2019-07-29 13:49 | NUR ---
SPOKE WITH RADHA BEJARANO AT [facility]. ADVISED OF POSSIBLE DISCHARGE TOMMOROW. PT. WILL CONTINUE I.V. ANTIBIOTICS FOR 3 DAYS AT FACILITY. PT. WILL NEED HL TO REMAIN AT DISCHARGE.
--- NOTE | 2019-07-29 14:16 | NUR ---
Spoke to Dr. Herrera regarding patient returning to [place] with Rocephin daily IV. Facility is good with a hep lock for the IV antibiotic. [facility] senior media planner notified.
--- NOTE | 2019-07-29 15:54 | NUR ---
SPOKE WITH PT. Lydia GREENE AND NOTIFIED OF PLANS TO DISCHARGE PATIENT IN THE A.M. AND BRAND PROTECTION MANAGER TIME 11:00 A.M.
--- NOTE | 2019-07-29 18:45 | NUR ---
TYLENOL SEEMS EFFECTIVE, PT NO LONGER YELLING OUT IN PAIN
[2019-07-30] VITALS: BP 96/48
--- NOTE | 2019-07-30 07:22 | NUR ---
Discharge photographs taken per policy.
--- NOTE | 2019-07-30 07:26 | NUR ---
COPY OF MARION SCRIPT [facility] [phone]
[2019-07-30 08:00] VITALS: BP 129/90
--- NOTE | 2019-07-30 10:50 | NUR ---
ambulance here to picking tech patient.
== END 2019-07-30 10:50 | disposition other institution (70) | DRG 306 ==
LOC: 5E 13:49
PROVIDERS: Student in an Organized Health Care Education/Training Program; ADMIT Internal Medicine
PROC: B24BZZ4 Ultrasonography of Heart with Aorta, Transesophageal (ICD-10-PCS; principal; 2019-07-29)
DX: I35.0 Nonrheumatic aortic (valve) stenosis (principal); E43 Unspecified severe protein-calorie malnutrition; R78.81 Bacteremia; E87.0 Hyperosmolality and hypernatremia; Z68.1 Body mass index [BMI] 19.9 or less, adult; F02.81 Dementia in other diseases classified elsewhere, unspecified severity, with behavioral disturbance; F32.9 Major depressive disorder, single episode, unspecified; Z66 Do not resuscitate; Z51.5 Encounter for palliative care; D53.9 Nutritional anemia, unspecified; E03.9 Hypothyroidism, unspecified; M19.90 Unspecified osteoarthritis, unspecified site; E78.5 Hyperlipidemia, unspecified; G30.9 Alzheimer's disease, unspecified; F41.9 Anxiety disorder, unspecified; B95.4 Other streptococcus as the cause of diseases classified elsewhere; Z96.652 Presence of left artificial knee joint; Z86.73 Personal history of transient ischemic attack (TIA), and cerebral infarction without residual deficits; Z86.718 Personal history of other venous thrombosis and embolism; Z98.49 Cataract extraction status, unspecified eye; Z96.1 Presence of intraocular lens; Z80.3 Family history of malignant neoplasm of breast; Z82.49 Family history of ischemic heart disease and other diseases of the circulatory system; Z88.8 Allergy status to other drugs, medicaments and biological substances; Z79.899 Other long term (current) drug therapy